=== PATIENT | female | born 1935 | race Caucasian/White ===

== ENCOUNTER 2020-03-04 11:47 | Emergency (ER) | payer BC ==
[2020-03-04] MEDS ORDERED: ACETAMINOPHEN 325 MG TABLET (FP) PO ONE (12:07)
[2020-03-04] MEDS ORDERED: LIDOCAINE 5% TOPICAL PATCH TP ONE (12:07)
[2020-03-04 12:17] VITALS: BP 190/94; PULSE 88; TEMP 97.9; BMI 28.3
[2020-03-04] MEDS ORDERED: LIDOCAINE 5% TOPICAL PATCH ONE (12:31)
[2020-03-04] MEDS ORDERED: ACETAMINOPHEN 500 MG TABLET (FP) ONE (12:31)
[2020-03-04] MEDS ORDERED: LIDOCAINE PATCH REMOVAL MC SCH (22:00)
== END 2020-03-04 13:00 | disposition home or self-care (01) ==
LOC: FER 11:47
DX: M54.5 Low back pain (principal)
CPT/HCPCS: 99283-25

== ENCOUNTER 2020-05-11 10:23 | Day surgery (SDC) | payer BC ==
[~2020-05-11 10:23] MED LIST: FERRIC CARBOXYMALTOSE 750 MG in SODIUM CHLORIDE 250 ML IVPB ONE
[2020-05-11] MEDS ORDERED: FERRIC CARBOXYMALTOSE 750 MG in SODIUM CHLORIDE 250 ML IVPB ONE (12:00)
[2020-05-11 18:11] VITALS: TEMP 98.1
[2020-05-11 18:13] VITALS: BP 138/80; PULSE 81
== END 2020-05-11 15:25 | disposition home or self-care (01) ==
LOC: JONCNONCHE 10:23
PROVIDERS: ATTEND Internal Medicine Hematology & Oncology
PROC: 3E033GC Introduction of Other Therapeutic Substance into Peripheral Vein, Percutaneous Approach (ICD-10-PCS; principal; 2020-05-11)
DX: D50.9 Iron deficiency anemia, unspecified (principal)
CPT/HCPCS: 96365; J1439

== ENCOUNTER 2020-05-18 08:02 | Day surgery (SDC) | payer BC ==
[2020-05-18] MEDS ORDERED: FERRIC CARBOXYMALTOSE 750 MG in SODIUM CHLORIDE 250 ML IVPB ONE (10:00)
[2020-05-18 16:02] VITALS: TEMP 97.5
[2020-05-18 16:13] VITALS: BP 141/68; PULSE 84
== END 2020-05-18 12:50 | disposition home or self-care (01) ==
LOC: JONCNONCHE 08:02
PROVIDERS: ATTEND Internal Medicine Hematology & Oncology
PROC: 3E033GC Introduction of Other Therapeutic Substance into Peripheral Vein, Percutaneous Approach (ICD-10-PCS; principal; 2020-05-18)
DX: D50.9 Iron deficiency anemia, unspecified (principal)
CPT/HCPCS: 96365; J1439

== ENCOUNTER 2021-02-05 20:23 | Emergency (ER) | payer BC ==
[2021-02-05 20:38] VITALS: TEMP 98.3; BMI 27.3
[2021-02-05 22:21] LABS: BASO % 1.2 % (0-2.0); EOS % 1.8 % (0-4.5); HEMATOCRIT 38.4 % (32.4-45.2); MCH 31.4 pg (25.7-33.7); MEAN CELL VOLUME 92.4 fl (80-96); MEAN PLT VOLUME 8.6 fl (7.5-11.1); MONO % 9.1 % (3.8-10.2); NEUT % 63.9 % (42.8-82.8); PLATELET COUNT 242 10^3/uL (134-434); RBC 4.15 M/mm3 (3.60-5.2); RDW 13.8 % (11.6-15.6); WHITE BLOOD COUNT 12.4 K/mm3 (4.0-10.0)
[2021-02-05 22:25] LABS: EPI CELLS 3 /uL (0-25.1); HYALINE CASTS 0 /uL (0-3.1); URINE APPEARANCE CLEAR; URINE BACTERIA 6435 /uL (0-1359); URINE BILIRUBIN NEGATIVE (NEGATIVE); URINE COLOR YELLOW; URINE GLUCOSE (UA) NEGATIVE (NEGATIVE); URINE KETONE NEGATIVE (NEGATIVE); URINE LEUK ESTERASE 2+ (NEGATIVE); URINE NITRITE NEGATIVE (NEGATIVE); URINE PROTEIN NEGATIVE (NEGATIVE); URINE RBC 6 /uL (0-23.9); URINE UROBILINOGEN 0.2 mg/dL (0.2-1.0); URINE WBC 275 /uL (0-25.8)
[2021-02-05 22:38] LABS: CHLORIDE 109 mmol/L (98-107); SODIUM 143 mmol/L (136-145)
[2021-02-05 22:40] LABS: CALCIUM 9.3 mg/dL (8.5-10.1)
[2021-02-05 22:41] LABS: ALBUMIN 3.4 g/dl (3.4-5.0); ANION GAP 5 MMOL/L (8-16); BLOOD UREA NITROGEN 22.7 mg/dL (7-18); CO2 29 mmol/L (21-32); GLUCOSE,RANDOM 135 mg/dL (74-106)
[2021-02-05 22:44] LABS: SGOT/AST 22 U/L (15-37); SGPT/ALT 29 U/L (13-61)
[2021-02-05 22:45] LABS: CREATININE 0.9 mg/dL (0.55-1.3)
[2021-02-05] MEDS ORDERED: SODIUM CHLORIDE 0.9% 500 ML INFUS.BAG IV ONE (22:45)
[2021-02-05 22:46] LABS: BILIRUBIN,TOTAL 0.2 mg/dL (0.2-1); TOT PROT 6.6 g/dl (6.4-8.2)
[2021-02-05] MEDS ORDERED: MAGNESIUM HYDROX 2400MG/30ML ORAL SUSPENSION 30 ML CUP PO ONE (22:46)
[2021-02-05] MEDS ORDERED: DOCUSATE SODIUM 100 MG CAPSULE (FP) PO ONE ×2 (22:46→22:49)
[2021-02-05 22:47] LABS: ALK PHOS 98 U/L (45-117)
[2021-02-05] MEDS ORDERED: MAGNESIUM HYDROX 2400MG/30ML ORAL SUSPENSION 30 ML CUP ONE (22:49)
[2021-02-05] MEDS ORDERED: AMOX TR/POT CLAV 875MG/125MG TABLETS (FP) PO ONE (22:50)
[2021-02-05 23:07] LABS: MAGNESIUM 2.4 mg/dL (1.8-2.4)
[2021-02-05] MEDS ORDERED: AMOX TR/POT CLAV 875MG/125MG TABLETS (FP) ONE (23:10)
[2021-02-06 01:25] VITALS: BP 151/72; PULSE 92
== END 2021-02-06 01:27 | disposition home or self-care (01) ==
LOC: JER 20:23
DX: N39.0 Urinary tract infection, site not specified (principal)
CPT/HCPCS: 36415; 71045-TC-FY; 80053; 81003; 82550; 83735; 84443; 84484; 85025; 93005; 93010; 99285-25; C9803; U0003; U0005

== ENCOUNTER 2021-02-07 11:32 | Inpatient (IN) | payer BC ==
[2021-02-07] MEDS ORDERED: SODIUM CHLORIDE 1,000 ML IV STA (12:08)
[2021-02-07] MEDS ORDERED: DIPHTH,PERTUSS(ACELL),TET 0.5 ML DISP.SYRIN IM ONE ×2 (12:09→13:03)
[2021-02-07] MEDS ORDERED: MEROPENEM 1 GM in DEXTROSE 5%-WATER 100 ML IVPB ONE (12:09)
[2021-02-07 12:47] LABS: BASO % 3.6 % (0-2.0); EOS % 1.5 % (0-4.5); HEMATOCRIT 40.9 % (32.4-45.2); HEMOGLOBIN 13.4 GM/dl (10.7-15.3); LYMPH % 14.8 % (8-40); MCH 30.3 pg (25.7-33.7); MCHC 32.7 g/dl (32.0-36.0); MEAN CELL VOLUME 92.7 fl (80-96); MEAN PLT VOLUME 8.6 fl (7.5-11.1); MONO % 7.7 % (3.8-10.2); NEUT % 72.4 % (42.8-82.8); PLATELET COUNT 243 10^3/uL (134-434); RBC 4.41 M/mm3 (3.60-5.2); RDW 12.9 % (11.6-15.6); WHITE BLOOD COUNT 9.4 K/mm3 (4.0-10.8)
[2021-02-07 13:05] LABS: ALBUMIN 4.1 g/dl (3.4-5.0); ALK PHOS 63 U/L (45-117); ANION GAP 13 MMOL/L (8-16); BILIRUBIN,TOTAL 0.4 mg/dl (0.2-1); CALCIUM 9.1 mg/dl (8.5-10); CHLORIDE 98 mmol/L (98-107); CO2 28 mmol/L (21-32); CREATININE 0.7 mg/dl (0.55-1.3); GLUCOSE,RANDOM 102 mg/dl (74-106); SGOT/AST 24 U/L (15-37); SGPT/ALT 23 U/L (13-61); SODIUM 139 mmol/L (136-145); TOT PROT 6.7 g/dl (6.4-8.2)
[2021-02-07] MEDS ORDERED: ACETAMINOPHEN 325 MG TABLET (FP) ONE (14:24)
[2021-02-07] MEDS ORDERED: ACETAMINOPHEN 500 MG TABLET (FP) PO ONE (14:25)
[2021-02-07 17:32] VITALS: BMI 26.9
[2021-02-07] MEDS: valACYclovir HCL 500 MG TABLET (FP) PO SCH ×2 (21:17→21:22)
[2021-02-07] MEDS: ATORVASTATIN CA 20 MG TABLET (FP) PO SCH (21:17)
[2021-02-07] MEDS: DONEPEZIL HCL 5 MG TABLET (FP) PO SCH (21:17)
[2021-02-07] MEDS: MONTELUKAST NA 10 MG TABLET PO SCH (21:17)
[2021-02-07] MEDS: ACETAMINOPHEN 325 MG TABLET (FP) PO PRN (22:03)
[2021-02-08] MEDS ORDERED: DEXTROSE 5%-WATER 100 ML IVPB ONE ×3 (01:03→18:15)
[2021-02-08] MEDS: MEROPENEM 1 GM in DEXTROSE 5%-WATER 100 ML IVPB SCH ×5 (01:31→18:39)
[2021-02-08] MEDS: ACETAMINOPHEN 325 MG TABLET (FP) PO PRN ×2 (06:10→15:45)
[2021-02-08] MEDS: valACYclovir HCL 500 MG TABLET (FP) PO SCH (07:02)
[2021-02-08 08:09] LABS: HEMATOCRIT 38.5 % (32.4-45.2); HEMOGLOBIN 12.8 GM/dl (10.7-15.3); MCHC 33.2 g/dl (32.0-36.0); MEAN CELL VOLUME 93.4 fl (80-96); MEAN PLT VOLUME 8.7 fl (7.5-11.1); PLATELET COUNT 241 10^3/uL (134-434); RBC 4.12 M/mm3 (3.60-5.2); RDW 13.1 % (11.6-15.6)
[2021-02-08 08:59] LABS: ANION GAP 10 MMOL/L (8-16); CALCIUM 8.7 mg/dl (8.5-10); CHLORIDE 101 mmol/L (98-107); CO2 26 mmol/L (21-32); CREATININE 0.7 mg/dl (0.55-1.3); GLUCOSE,RANDOM 111 mg/dl (74-106); SODIUM 137 mmol/L (136-145)
[2021-02-08] MEDS ORDERED: MEROPENEM 1 GM VIAL (RESTRICTED TO ID) IVPB ONE ×2 (09:13→18:16)
[2021-02-08 09:49] LABS: PLATELET ESTIMATE ADEQUATE
[2021-02-08] MEDS ORDERED: PATIENT'S OWN MEDICATION (NON-FORMULARY) (Azelastine Hcl [Azelastine Hcl] 137 MCG/0.137 ML NS SCH (10:00)
[2021-02-08] MEDS: ENOXAPARIN NA (PORCINE) 40 MG/0.4 ML DISP.SYRIN SQ SCH (11:17)
[2021-02-08] MEDS: MONTELUKAST NA 10 MG TABLET PO SCH (21:41)
[2021-02-08] MEDS: ATORVASTATIN CA 20 MG TABLET (FP) PO SCH (21:41)
[2021-02-08] MEDS: DONEPEZIL HCL 5 MG TABLET (FP) PO SCH (21:41)
[2021-02-09] MEDS ORDERED: MEROPENEM 1 GM VIAL (RESTRICTED TO ID) IVPB ONE ×3 (02:24→18:08)
[2021-02-09] MEDS ORDERED: DEXTROSE 5%-WATER 100 ML IVPB ONE ×3 (02:24→18:07)
[2021-02-09] MEDS: MEROPENEM 1 GM in DEXTROSE 5%-WATER 100 ML IVPB SCH ×3 (02:26→18:10)
[2021-02-09] MEDS: ENOXAPARIN NA (PORCINE) 40 MG/0.4 ML DISP.SYRIN SQ SCH (09:23)
[2021-02-09] MEDS: DONEPEZIL HCL 5 MG TABLET (FP) PO SCH (21:28)
[2021-02-09] MEDS: ATORVASTATIN CA 20 MG TABLET (FP) PO SCH (21:28)
[2021-02-09] MEDS: MONTELUKAST NA 10 MG TABLET PO SCH (21:28)
[2021-02-09] MEDS: ACETAMINOPHEN 325 MG TABLET (FP) PO PRN (23:04)
[2021-02-10] MEDS ORDERED: MEROPENEM 1 GM VIAL (RESTRICTED TO ID) IVPB ONE ×3 (02:04→17:39)
[2021-02-10] MEDS ORDERED: DEXTROSE 5%-WATER 100 ML IVPB ONE ×3 (02:04→17:39)
[2021-02-10] MEDS: MEROPENEM 1 GM in DEXTROSE 5%-WATER 100 ML IVPB SCH ×3 (02:05→17:48)
[2021-02-10] MEDS: ACETAMINOPHEN 325 MG TABLET (FP) PO PRN ×2 (09:26→21:42)
[2021-02-10] MEDS: ENOXAPARIN NA (PORCINE) 40 MG/0.4 ML DISP.SYRIN SQ SCH (09:27)
[2021-02-10 11:05] LABS: HEMATOCRIT 40.3 % (32.4-45.2); HEMOGLOBIN 13.4 GM/dl (10.7-15.3); MCH 30.9 pg (25.7-33.7); MCHC 33.2 g/dl (32.0-36.0); MEAN CELL VOLUME 92.9 fl (80-96); MEAN PLT VOLUME 8.8 fl (7.5-11.1); PLATELET COUNT 229 10^3/uL (134-434); RBC 4.33 M/mm3 (3.60-5.2); RDW 13.4 % (11.6-15.6)
[2021-02-10 11:37] LABS: CREATININE 0.6 mg/dl (0.55-1.3)
[2021-02-10] MEDS: MONTELUKAST NA 10 MG TABLET PO SCH (21:41)
[2021-02-10] MEDS: ATORVASTATIN CA 20 MG TABLET (FP) PO SCH (21:41)
[2021-02-10] MEDS: DONEPEZIL HCL 5 MG TABLET (FP) PO SCH (21:41)
[2021-02-11] MEDS ORDERED: MEROPENEM 1 GM VIAL (RESTRICTED TO ID) IVPB ONE ×3 (01:45→17:59)
[2021-02-11] MEDS ORDERED: DEXTROSE 5%-WATER 100 ML IVPB ONE ×3 (01:45→17:59)
[2021-02-11] MEDS: MEROPENEM 1 GM in DEXTROSE 5%-WATER 100 ML IVPB SCH ×3 (01:46→18:07)
[2021-02-11 08:13] LABS: HEMATOCRIT 40.9 % (32.4-45.2); HEMOGLOBIN 13.4 GM/dl (10.7-15.3); MCH 30.6 pg (25.7-33.7); MCHC 32.8 g/dl (32.0-36.0); MEAN CELL VOLUME 93.1 fl (80-96); PLATELET COUNT 254 10^3/uL (134-434); RBC 4.39 M/mm3 (3.60-5.2); RDW 13.3 % (11.6-15.6); WHITE BLOOD COUNT 9.7 K/mm3 (4.0-10.8)
[2021-02-11] MEDS: ENOXAPARIN NA (PORCINE) 40 MG/0.4 ML DISP.SYRIN SQ SCH (09:31)
[2021-02-11] MEDS: ACETAMINOPHEN 325 MG TABLET (FP) PO PRN (21:37)
[2021-02-11] MEDS: ATORVASTATIN CA 20 MG TABLET (FP) PO SCH (21:38)
[2021-02-11] MEDS: MONTELUKAST NA 10 MG TABLET PO SCH (21:38)
[2021-02-11] MEDS: DONEPEZIL HCL 5 MG TABLET (FP) PO SCH (21:38)
[2021-02-12] MEDS ORDERED: MEROPENEM 1 GM VIAL (RESTRICTED TO ID) IVPB ONE ×2 (02:26→09:10)
[2021-02-12] MEDS ORDERED: DEXTROSE 5%-WATER 100 ML IVPB ONE ×2 (02:26→09:10)
[2021-02-12] MEDS: MEROPENEM 1 GM in DEXTROSE 5%-WATER 100 ML IVPB SCH ×2 (02:28→09:11)
[2021-02-12 06:14] VITALS: BP 136/70; PULSE 77; TEMP 98.4
[2021-02-12] MEDS: ACETAMINOPHEN 325 MG TABLET (FP) PO PRN (06:14)
[2021-02-12 08:30] LABS: ALBUMIN 3.4 g/dl (3.4-5.0); BILIRUBIN,TOTAL 0.5 mg/dl (0.2-1); CALCIUM 8.7 mg/dl (8.5-10); CREATININE 0.6 mg/dl (0.55-1.3); MAGNESIUM 2.1 mg/dL (1.8-2.4); TOT PROT 5.8 g/dl (6.4-8.2)
[2021-02-12 08:36] LABS: MCH 30.9 pg (25.7-33.7); MCHC 33.2 g/dl (32.0-36.0)
[2021-02-12 08:53] LABS: HEMOGLOBIN 12.9 GM/dl (10.7-15.3); MEAN PLT VOLUME 8.8 fl (7.5-11.1); PLATELET COUNT 244 10^3/uL (134-434); RBC 4.19 M/mm3 (3.60-5.2); WHITE BLOOD COUNT 8.6 K/mm3 (4.0-10.8)
[2021-02-12] MEDS: ENOXAPARIN NA (PORCINE) 40 MG/0.4 ML DISP.SYRIN SQ SCH (09:12)
[2021-02-12 12:13] LABS: PLATELET ESTIMATE ADEQUATE
== END 2021-02-12 13:23 | disposition home or self-care (01) | DRG 690 ==
LOC: FER 11:32 → FM/S 16:15 → INTOOBSV 16:15 → OBSVTOIN 02-09 10:18
PROVIDERS: ADMIT Internal Medicine; ATTEND Nurse Practitioner Acute Care
DX: N39.0 Urinary tract infection, site not specified (principal); R55 Syncope and collapse; I10 Essential (primary) hypertension; E78.5 Hyperlipidemia, unspecified; B96.89 Other specified bacterial agents as the cause of diseases classified elsewhere; M48.00 Spinal stenosis, site unspecified
CPT/HCPCS: 36415; 70450-TC; 71045-TC-FY; 72125-TC; 80048; 80053; 81003; 82308; 82550; 83735; 84484; 85025; 85027; 87086; 90715; 93005; 93306-TC; 97116-GP; 97162-GP; 99285-25; C9803; G0378; U0003; U0005

== ENCOUNTER 2021-10-27 11:54 | Emergency (ER) | payer BC ==
[2021-10-27 12:22] VITALS: BP 158/78; PULSE 97; RESP 18; TEMP 98.9; BMI 27.2
[2021-10-27 12:56] LABS: HEMATOCRIT 37.3 % (32.4-45.2); HEMOGLOBIN 12.9 G/dL (10.7-15.3); MCH 31.9 pg (25.7-33.7); MCHC 34.7 g/dl (32.0-36.0); MEAN CELL VOLUME 92.2 fl (80-96); MEAN PLT VOLUME 8.6 fl (7.5-11.1); PLATELET COUNT 232.1 10^3/uL (134-434); RBC 4.05 10^6/uL (3.60-5.2); WHITE BLOOD COUNT 8.9 10^3/uL (4.0-10.8)
[2021-10-27 13:03] LABS: ALBUMIN 3.7 g/dl (3.4-5.0); BILIRUBIN,TOTAL 0.4 mg/dl (0.2-1); CALCIUM 9.6 mg/dl (8.5-10); CREATININE 0.7 mg/dl (0.55-1.3); TOT PROT 6.3 g/dl (6.4-8.2)
[2021-10-27] MEDS ORDERED: CEPHALEXIN MONOHYDRATE 250 MG CAPSULE (FP) PO ONE (13:36)
[2021-10-27] MEDS ORDERED: CEPHALEXIN MONOHYDRATE 250 MG CAPSULE (FP) ONE (13:40)
== END 2021-10-27 13:56 | disposition home or self-care (01) ==
LOC: FER 11:54
DX: N39.0 Urinary tract infection, site not specified (principal)
CPT/HCPCS: 0241U-QW; 36415; 80053; 81003; 81015; 85027; 87086; 87186; 99283-25

== ENCOUNTER 2022-07-26 15:05 | Emergency (ER) | payer BC ==
[2022-07-26 15:28] VITALS: BP 152/76; PULSE 93; RESP 16; TEMP 99.1; BMI 27.6
== END 2022-07-26 20:31 | disposition home or self-care (01) ==
LOC: FER 15:05
DX: S62.327A Displaced fracture of shaft of fifth metacarpal bone, left hand, initial encounter for closed fracture (principal); M54.2 Cervicalgia; R26.81 Unsteadiness on feet; W01.0XXA Fall on same level from slipping, tripping and stumbling without subsequent striking against object, initial encounter
CPT/HCPCS: 70450-TC; 72125-TC; 72128-TC; 73110-TC-LT-FY; 73110-TC-RT-FY; 73130-TC-LT-FY; 73130-TC-RT-FY; 81003; 87086; 99285-25